=== PATIENT | female | born 1935 | race Caucasian/White ===

== ENCOUNTER 2016-05-30 13:37 | Emergency (ER) | payer BC ==
[2016-05-30 13:25] LABS: BASOPHILS 0.3 %; BASOPHILS ABSOLUTE 0.02 10/3/uL (0.0-0.16); EOSINOPHILS 1.3 %; ER CBC TAT 0 Hrs 07 Mins; HEMATOCRIT 43.8 % (36.0-48.0); HEMOGLOBIN 14.2 g/dL (12.0-16.0); IMMATURE GRANULOCYTES 0.1 %; IMMATURE GRANULOCYTES ABSOLUTE 0.01 10/3/uL (0.0-0.11); LYMPHOCYTES 6.6 %; MEAN CORPUS HGB CONC 32.4 g/dL (32.0-36.0); MEAN CORPUSCULAR HEMOGLOB 30.3 pg (26.0-34.0); MEAN CORPUSCULAR VOLUME 93.6 fL (80-100); MONOCYTES 14.3 %; MONOCYTES ABSOLUTE 1.09 10/3/uL (0.21-1.20); NEUTROPHILS 77.4 %; NEUTROPHILS ABSOLUTE 5.91 10/3/uL (2.02-8.40); PLATELET COUNT 190 10/3/uL (150-400); RBC DISTRIBUTION WIDTH 14.1 % (12.0-16.0); RED CELL COUNT 4.68 10/6/uL (4.0-5.6); WHITE BLOOD CELLS 7.6 10/3/uL (4.5-10.5)
[2016-05-30 13:26] LABS: MANUAL DIFF NO %
[2016-05-30 13:28] LABS: ASCORBIC ACID (UR NOT ORDER) 40 (NEG); BILIRUBIN, URINE NEGATIVE (NEG); ER URINALYSIS TAT 0 Hrs 10 Mins; KETONE, URINE 20 MG/DL (NEG); LEUKOCYTE ESTERASE(NOT OR MOD (NEG); NITRITE (URINE) NEG (NEG); WBC (NOT ORDERED) (RFLEX) 13 (0-5)
[2016-05-30 13:36] LABS: INFLUENZA A SCREEN POSITIVE (NEGATIVE); INFLUENZA B SCREEN NEGATIVE (NEGATIVE)
[~2016-05-30 13:37] MED LIST: BP MED; DORZOLAMIDE2 % OP; EVISTA60 PO; FLOMAX4 PO; GLUCOSAMINE CH1 EAC3 PO; LORTAB 5 PO; LUMIGAN OPH; NORV25 PO; PR12.5 PO; PRILO PO; TRUSOPT2 % OPH; VICODINTAB PO; VITAMIN D31000 UNIT PO; [UNRECOGNIZED DRUG - OTHER] PO
[2016-05-30 14:05] LABS: A/G RATIO 0.9 (0.7-1.9); ALBUMIN 3.5 G/DL (3.5-5.0); ALKALINE PHOSPHATASE 90 U/L (45-117); BUN (BLOOD UREA NITROGEN) 11 MG/DL (6-23); CALCIUM, SERUM 9.8 MG/DL (8.5-10.4); CHLORIDE, SERUM 100 MMOL/L (96-112); CO2 (CARBON DIOXIDE) 27 MMOL/L (24-34); CREATININE 0.75 MG/DL (0.55-1.02); GFR AFRICAN AMERICAN 86 ML/MIN (>=60); GFR NON AFRICAN AMERICAN 74 ML/MIN (>=60); POTASSIUM, SERUM 3.8 MMOL/L (3.5-5.3); SGOT(AST) 25 U/L (5-40); SGPT(ALT) 17 U/L (5-65); SODIUM, SERUM 137 MMOL/L (135-148); TOTAL BILIRUBIN 0.5 MG/DL (0-1.2); TOTAL PROTEIN 7.6 G/DL (6.0-8.5)
[2016-05-30 14:06] LABS: GLOBULIN 4.1 G/DL (2.5-4.1); GLUCOSE, SERUM 113 MG/DL (60-99)
[2016-08-31] MEDS ORDERED: NORV5 PO (14:43)
[2016-08-31] MEDS ORDERED: BC POWDER PO (14:46)
== END 2016-05-30 15:05 | disposition home or self-care (01) ==
LOC: ER 13:37
PROVIDERS: Nurse Practitioner Family
DX: J10.1 Influenza due to other identified influenza virus with other respiratory manifestations (principal); N39.0 Urinary tract infection, site not specified; I10 Essential (primary) hypertension; Z79.899 Other long term (current) drug therapy
CPT/HCPCS: 71020; 80053; 81001; 85025; 87070; 87086; 87804; 87880; 93005; 99285; A9270-GY

== ENCOUNTER 2016-09-04 09:16 | Day surgery (SDC) | payer BC ==
--- NOTE | ~2016-09-04 | EGD ---
EGD REPORT [facility] [address] [place]. [address] NAME: NARENDRA MOLINA : [birth year] STATUS : REG [facility] [place] PAT#: [id number] AGE: 81 ADM/REG DATE : 09/04/16 MR#: [id number] REPORT SERV DATE: 09/04/16 DICTATED BY: CINDA WILHELM DATE: 09/04/16 REPORT STATUS : Draft TRANSCRIBED BY: [employer] DATE: 09/04/16 [facility] Patient Name: Narendra Molina Date of : 1935 Attending MD: CINDA WILHELM MD Procedure Date No Time: 09/04/2016 Procedure: Colonoscopy Indications: Clinically significant diarrhea of unexplained origin, Fecal incontinence Referring MD: ROSALVA NEVAREZ MD Medicines: as per anesthesia Complications: No immediate complications. Procedure: Pre-Anesthesia Assessment: - ASA Grade Assessment: III - A patient with severe systemic disease. After I obtained informed consent, the scope was passed under direct vision. Throughout the procedure, the patient's blood pressure, pulse, and oxygen saturations were monitored continuously. The PCF [id number] was introduced through the anus and advanced to the cecum, identified by appendiceal orifice and ileocecal valve. The colonoscopy was somewhat difficult due to restricted mobility of the colon, significant looping and a tortuous colon. The patient tolerated the procedure. The quality of the bowel preparation was adequate to identify polyps. Findings: The perianal and digital rectal examinations were normal. A sessile polyp was found in the ascending colon. The polyp was 4 mm in size. The polyp was removed with a cold biopsy forceps. Resection and retrieval were complete. Many small and large-mouthed diverticula were found in the sigmoid colon, in the descending colon, in the transverse colon and in the ascending colon. Four biopsies were obtained in the rectum and in the ascending colon with cold forceps for histology. Impression: - One 4 mm polyp in the ascending colon. Resected and retrieved. - Diverticulosis in the sigmoid colon, in the descending colon, in the transverse colon and in the ascending colon. - Four biopsies were obtained in the rectum and in the ascending colon. EGD REPORT [address] [address] NAME: NARENDRA MOLINA : [birth year] STATUS : REG [facility] [place] PAT#: [id number] AGE: 81 ADM/REG DATE : 09/04/16 MR#: [id number] REPORT SERV DATE: 09/04/16 DICTATED BY: CINDA WILHELM. DATE: 09/04/16 REPORT STATUS : Draft TRANSCRIBED BY: [email or web address] DATE: 09/04/16 Recommendation: - Await pathology results. Procedure Code(s): --- Professional --- 26695, Colonoscopy, flexible, proximal to splenic flexure; with biopsy, single or multiple Diagnosis Code(s): --- Professional --- D12.2, Benign neoplasm of ascending colon K57.30, Diverticulosis of large intestine without perforation or abscess without bleeding R19.7, Diarrhea, unspecified R15.9, Full incontinence of feces CPT copyright 2013 [employer]. All rights reserved. The codes documented in this report are preliminary and upon sales support administrator review may be revised to meet current compliance requirements. CINDA WILHELM MD 09/04/2016 1:02 PM This report has been signed electronically. Number of Addenda: 0 Note Initiated On: 09/04/2016 11:43 AM Scope Withdrawal Time 0 hours 10 minutes 15 seconds [id number] [place] [id number]
[~2016-09-04 09:16] MED LIST changes: +BC POWDER PO; +NORV5 PO
== END 2016-09-04 23:59 | disposition home or self-care (01) ==
LOC: DMU 09:16
PROVIDERS: Internal Medicine Gastroenterology
PROC: 0DBP8ZX Excision of Rectum, Via Natural or Artificial Opening Endoscopic, Diagnostic (ICD-10-PCS; 2016-09-04)
PROC: 0DBK8ZZ Excision of Ascending Colon, Via Natural or Artificial Opening Endoscopic (ICD-10-PCS; principal; 2016-09-04 10:30)
DX: D12.2 Benign neoplasm of ascending colon (principal); K57.30 Diverticulosis of large intestine without perforation or abscess without bleeding; R19.7 Diarrhea, unspecified; R15.9 Full incontinence of feces; I10 Essential (primary) hypertension; H54.0 Blindness, both eyes; M19.90 Unspecified osteoarthritis, unspecified site; M81.0 Age-related osteoporosis without current pathological fracture; K21.9 Gastro-esophageal reflux disease without esophagitis; Z87.442 Personal history of urinary calculi; Z90.710 Acquired absence of both cervix and uterus; Z90.49 Acquired absence of other specified parts of digestive tract; Z98.41 Cataract extraction status, right eye; Z98.42 Cataract extraction status, left eye; Z96.1 Presence of intraocular lens; Z98.51 Tubal ligation status; Z87.891 Personal history of nicotine dependence; Z79.899 Other long term (current) drug therapy
CPT/HCPCS: 88305